=== PATIENT | female | born 1985 | race Caucasian/White ===

== ENCOUNTER 2020-04-13 18:04 | Inpatient (IN) | payer MEDICAID ==
[~2020-04-13] VITALS: Ht 157.5 cm; Wt 55.8 kg
--- NOTE | 2020-04-13 20:10 | NUR ---
patient in from [facility] per ambulance as direct admit with cc of flank pain for 3 to 4 days with dx of right pyelonephritis, with complaints of flank pain and will call physician for admitting orders, Dr Alhaji engel awaiting response
[2020-04-13 20:35] VITALS: BP 108/46
[2020-04-13] MEDS ORDERED: ZOLPIDEM 5 MG TABLET PO PRN (21:30)
[2020-04-13] MEDS ORDERED: HYDROMORPHONE 1 MG/1 ML DISP.SYRIN IV PRN (21:30)
--- NOTE | 2020-04-13 21:37 | NUR ---
Dr Mane with orders and carried out
[2020-04-13] MEDS: ACETAMINOPHEN 325 MG TABLET PO PRN (21:57)
[2020-04-13] MEDS: IV NS 1000 ML 1,000 ML IV PRN (22:01)
--- NOTE | 2020-04-13 22:03 | NUR ---
has allergies to codeine and has reactions to dilaudid . Dr Mane called and informed
[2020-04-13] MEDS ORDERED: CEFTRIAXONE 1 G VIAL ONE (22:22)
[2020-04-13] MEDS: CEFTRIAXONE 1 G in IV DEXTROSE 5% 50 ML IV SCH (22:30)
[2020-04-13] MEDS: MORPHINE SULFATE 4 MG/1 ML DISP.SYRIN IV PRN (22:31)
[2020-04-13] MEDS: ONDANSETRON 4 MG/2 ML VIAL IV PRN (22:31)
--- NOTE | 2020-04-13 22:55 | NUR ---
with call light within reach. Rocephin dose infusing . will continue to monitor. morphine dose given as ordered,
--- NOTE | 2020-04-14 00:17 | NUR ---
Dr Feldman as substation operator chief informed that the patient is crying in pain . with orders and carried out
--- NOTE | 2020-04-14 00:20 | NUR ---
DR FRANCISCO ORDERED MORPHINE 2MG IV FOR ONE TIME FOR SEVERE PAIN.
[2020-04-14] MEDS ORDERED: MORPHINE SULFATE 2 MG/1 ML DISP.SYRIN IV ONE (00:30)
--- NOTE | 2020-04-14 00:38 | NUR ---
Dr Feldman with orders of morphine dose x 1 and given,
--- NOTE | 2020-04-14 00:46 | NUR ---
asleep.latest temp 100.7. continuos cold compress applied, urine specimen cup ready forthe urine collection as was not collected prior.
[2020-04-14] MEDS: ACETAMINOPHEN 325 MG TABLET PO PRN ×2 (03:35→12:30)
--- NOTE | 2020-04-14 03:55 | NUR ---
awake,ambulated to the bathroom .,voided freely.assisted back to bed, temp 101.1.tylenol dose given early.temp is high, cold compress applied
[2020-04-14 04:05] VITALS: BP 112/59
[2020-04-14 04:05] LABS: *BILIRUBIN,URIN NEGATIVE (NEGATIVE); *BLOOD, URINE 2+ (NEGATIVE); *CLARITY,URINE CLEAR (CLEAR); *COLOR,URINE YELLOW (YELLOW); *KETONES,URINE 1+ (NEGATIVE); *UROBILINOGEN,URINE 0.2 E.U./dl (NORMAL); LEUKOCYTE ESTERASE ,URINE 1+ (NEGATIVE); NITRITE, URINE NEGATIVE (NEGATIVE); UGLUCOSE NEGATIVE (NEGATIVE)
--- NOTE | 2020-04-14 04:14 | NUR ---
Dr Feldman paged as the patient is still febrile. and noted the the lab result elevated serum HCG , message left with the exchange, awaiting response
--- NOTE | 2020-04-14 04:45 | NUR ---
awaiting for Dr Feldman to call sai
--- NOTE | 2020-04-14 05:27 | NUR ---
with request to increase thepain medicationasclaims it is not working, awaiting for Dr Feldman to call back.
--- NOTE | 2020-04-14 05:33 | NUR ---
Dr Feldman called back and informed about the fever that is elevated persistently. with no further orders.
[2020-04-14 06:08] VITALS: BP 102/53
--- NOTE | 2020-04-14 06:09 | NUR ---
with complaints of pain to the right flank area radiating to the lower [place], vital signs checked. needa to infirm the physician.
--- NOTE | 2020-04-14 06:12 | NUR ---
patient is complaining of pain right flank radiating to the midback, Dr Francia castro if can ne given morphine for bp 102/54, and patient serum HCg is elevated.
--- NOTE | 2020-04-14 06:18 | NUR ---
with complaints of pain right flank radiating to the mid back. patient elevated serum hcg, with ordwers to repeat the serum hcg level and okay to give morphine dose,
--- NOTE | 2020-04-14 06:26 | NUR ---
PATIENT SERUM HCG 4.[address] NOLAN BAL NOTIFY WITH ORDER TO REPEAT THE TEST.
[2020-04-14] MEDS: PANTOPRAZOLE SODIUM 40 MG TABLET.DR PO SCH (06:31)
[2020-04-14] MEDS: MORPHINE SULFATE 4 MG/1 ML DISP.SYRIN IV PRN ×3 (06:31→18:31)
[2020-04-14 07:27] LABS: BILIRUBIN,TOTAL 0.5 mg/dL (0.2-1.0); CREATININE 0.9 mg/dL (0.6-1.3); MAGNESIUM 2.1 mg/dL (1.8-2.4); PHOSPHOROUS 1.7 mg/dL (2.5-4.9); POTASSIUM 3.5 mmol/L (3.5-5.1); TOTAL PROTEIN, SERUM 5.8 g/dL (6.4-8.2)
[2020-04-14] MEDS: IV NS 1000 ML 1,000 ML IV PRN (09:03)
[2020-04-14 09:05] LABS: BASOPHILS % (AUTO) 0.3 % (0.0-2.0); EOSINOPHILS % (AUTO) 0.1 % (0.0-7.0); HEMATOCRIT 24.5 % (31.2-41.9); LYMPHOCYTES # (AUTO) 1.9 K/uL (20.0-40.0); LYMPHOCYTES % (AUTO) 16.9 % (20.5-51.5); MEAN CORPUSCULAR HEMOGLOBIN 20.1 uug (24.7-32.8); MEAN CORPUSCULAR HGB CONC 30 g/dL (32.3-35.6); MEAN CORPUSCULAR VOLUME 66.6 fL (75.5-95.3); MONOCYTES # (AUTO) 0.7 K/uL (2.0-10.0); MONOCYTES % (AUTO) 6.7 % (0.0-11.0); NEUTROPHILS # (AUTO) 8.5 K/uL (1.8-8.9); PLATELET COUNT (AUTO) 157 K/uL (179-408); RED BLOOD CELL COUNT(AUTO) 3.69 MIL/uL (3.63-4.92); WHITE BLOOD COUNT (AUTO) 11.1 K/uL (3.8-11.8)
[2020-04-14 09:20] LABS: HEMOGLOBIN 7.4 g/dL (10.9-14.3)
[2020-04-14] MEDS: ONDANSETRON 4 MG/2 ML VIAL IV PRN ×2 (11:23→18:30)
[2020-04-14 12:01] VITALS: BP 107/40
[2020-04-14 13:23] LABS: BACTERIA,URINE FEW /HPF (NONE SEEN); SQUAMOUS EPITHELIAL CELL,UR FEW /HPF (NONE SEEN)
[2020-04-14] MEDS ORDERED: KETOROLAC TROMETHAMINE 15 MG INJ IVP ONE ×2 (14:15→19:45)
[2020-04-14 15:35] VITALS: BP 100/59
[2020-04-14 17:19] LABS: BAND % (MANUAL) 5 % (0-10); LYMPHOCYTES % (MANUAL) 2 % (20-40); MONOCYTES % (MANUAL) 4 % (2-10); NEUTROPHILS % (MANUAL) 89 % (42-75)
[2020-04-14 18:54] LABS: BASOPHILS % (AUTO) 0.3 % (0.0-2.0); EOSINOPHILS % (AUTO) 0.2 % (0.0-7.0); HEMATOCRIT 26.9 % (31.2-41.9); LYMPHOCYTES # (AUTO) 2.1 K/uL (20.0-40.0); LYMPHOCYTES % (AUTO) 23.9 % (20.5-51.5); MEAN CORPUSCULAR HEMOGLOBIN 19.6 uug (24.7-32.8); MEAN CORPUSCULAR HGB CONC 30 g/dL (32.3-35.6); MEAN CORPUSCULAR VOLUME 65.7 fL (75.5-95.3); MONOCYTES # (AUTO) 0.7 K/uL (2.0-10.0); MONOCYTES % (AUTO) 8.4 % (0.0-11.0); NEUTROPHILS # (AUTO) 5.8 K/uL (1.8-8.9); NEUTROPHILS % (AUTO) 67.2 % (38.5-71.5); PLATELET COUNT (AUTO) 151 K/uL (179-408); RED BLOOD CELL COUNT(AUTO) 4.09 MIL/uL (3.63-4.92); WHITE BLOOD COUNT (AUTO) 8.7 K/uL (3.8-11.8)
[2020-04-14] MEDS ORDERED: NEUTRA PHOS PACKET PO ONE (19:00)
[2020-04-14 20:20] VITALS: BP 109/55
[2020-04-14] MEDS: CEFTRIAXONE 1 G in IV DEXTROSE 5% 50 ML IV SCH (20:39)
[2020-04-15] MEDS: MORPHINE SULFATE 4 MG/1 ML DISP.SYRIN IV PRN ×5 (00:49→21:30)
[2020-04-15] MEDS: IV NS 1000 ML 1,000 ML IV PRN ×2 (00:54→10:39)
--- NOTE | 2020-04-15 02:28 | NUR ---
awake alert and oriented x4 Admitted for pyelonephritis. VSS. Needs attended. IVF's infusing well. IV ABT given as scheduled. No acute distress noted. On pain management. Patient on Morphine 4mg q4 hr as needed for pain. Will monitor patient for relief. Voiding well without difficulty.
[2020-04-15 04:00] VITALS: BP 114/63
[2020-04-15] MEDS: PANTOPRAZOLE SODIUM 40 MG TABLET.DR PO SCH (06:21)
[2020-04-15 08:04] LABS: BILIRUBIN,TOTAL 0.3 mg/dL (0.2-1.0); CREATININE 0.9 mg/dL (0.6-1.3); POTASSIUM 3.2 mmol/L (3.5-5.1); TOTAL PROTEIN, SERUM 5.4 g/dL (6.4-8.2)
[2020-04-15] MEDS ORDERED: POTASSIUM CHLORIDE 20 MEQ TAB.PRT.SR PO ONE (09:15)
[2020-04-15 10:12] LABS: BASOPHILS % (AUTO) 0.3 % (0.0-2.0); HEMATOCRIT 22.7 % (31.2-41.9); LYMPHOCYTES # (AUTO) 2.8 K/uL (20.0-40.0); MEAN CORPUSCULAR HEMOGLOBIN 20.1 uug (24.7-32.8); MEAN CORPUSCULAR HGB CONC 31 g/dL (32.3-35.6); MEAN CORPUSCULAR VOLUME 65.1 fL (75.5-95.3); MONOCYTES # (AUTO) 0.7 K/uL (2.0-10.0); NEUTROPHILS # (AUTO) 5.4 K/uL (1.8-8.9); NEUTROPHILS % (AUTO) 60.7 % (38.5-71.5); PLATELET COUNT (AUTO) 143 K/uL (179-408); RED BLOOD CELL COUNT(AUTO) 3.48 MIL/uL (3.63-4.92); WHITE BLOOD COUNT (AUTO) 8.9 K/uL (3.8-11.8)
[2020-04-15 12:00] VITALS: BP 120/70
[2020-04-15 13:24] LABS: *BILIRUBIN,URIN NEGATIVE (NEGATIVE); *BLOOD, URINE 3+ (NEGATIVE); *CLARITY,URINE CLEAR (CLEAR); *COLOR,URINE YELLOW (YELLOW); *KETONES,URINE NEGATIVE (NEGATIVE); *UROBILINOGEN,URINE 0.2 E.U./dl (NORMAL); LEUKOCYTE ESTERASE ,URINE NEGATIVE (NEGATIVE); NITRITE, URINE NEGATIVE (NEGATIVE); UGLUCOSE NEGATIVE (NEGATIVE)
[2020-04-15 13:58] LABS: *CREATININE,URINE 151.3 mg/dL (30-125); *URINE TOTAL PROTEIN RANDOM 139.7 mg/dL (<150/24HR)
[2020-04-15] MEDS: ACETAMINOPHEN 325 MG TABLET PO PRN (15:41)
[2020-04-15 16:09] VITALS: BP 101/53
[2020-04-15] MEDS ORDERED: PIPERACILLIN SODIUM/TAZOBACTAM 3.375 G in IV DEXTROSE 5% 50 ML IV ONE (17:00)
[2020-04-15 17:21] LABS: BACTERIA,URINE FEW /HPF (NONE SEEN); RBC,URINE 20-50 /HPF (0-3); SQUAMOUS EPITHELIAL CELL,UR FEW /HPF (NONE SEEN); WBC,URINE 0-3 /HPF (0-3)
[2020-04-15 17:32] LABS: BAND % (MANUAL) 3 % (0-10); EOSINOPHILS % (MANUAL) 1 % (0-8); LYMPHOCYTES % (MANUAL) 13 % (20-40); MONOCYTES % (MANUAL) 12 % (2-10); NEUTROPHILS % (MANUAL) 71 % (42-75)
[2020-04-15 20:19] VITALS: BP 90/54
[2020-04-15] MEDS: PIPERACILLIN SODIUM/TAZOBACTAM 3.37 G in IV DEXTROSE 5% 100 ML IV SCH (22:36)
[2020-04-15] MEDS ORDERED: PIPERACILLIN SODIUM/TAZOBACTAM 3.375 G in IV DEXTROSE 5% 50 ML IV SCH (23:00)
[2020-04-16] VITALS (7 sets, daily range): BP systolic 98–131; BP diastolic 55–78
[2020-04-16] MEDS: MORPHINE SULFATE 4 MG/1 ML DISP.SYRIN IV PRN ×4 (00:48→15:21)
[2020-04-16] MEDS: PANTOPRAZOLE SODIUM 40 MG TABLET.DR PO SCH (06:47)
[2020-04-16] MEDS: PIPERACILLIN SODIUM/TAZOBACTAM 3.37 G in IV DEXTROSE 5% 100 ML IV SCH ×3 (06:47→22:06)
[2020-04-16] MEDS: IV NS 1000 ML 1,000 ML IV PRN (06:55)
--- NOTE | 2020-04-16 07:10 | NUR ---
Handoff with day team nurse ASHLEY Grey. Tigre Moreno RN
[2020-04-16 07:48] LABS: BILIRUBIN,TOTAL 0.6 mg/dL (0.2-1.0); CREATININE 0.9 mg/dL (0.6-1.3); MAGNESIUM 1.7 mg/dL (1.8-2.4); PHOSPHOROUS 1.3 mg/dL (2.5-4.9); POTASSIUM 3.4 mmol/L (3.5-5.1); TOTAL PROTEIN, SERUM 5.8 g/dL (6.4-8.2); URIC ACID 1.6 mg/dL (2.6-6.0)
[2020-04-16 08:26] LABS: BASOPHILS % (AUTO) 0.4 % (0.0-2.0); EOSINOPHILS % (AUTO) 0.1 % (0.0-7.0); HEMATOCRIT 26.1 % (31.2-41.9); HEMOGLOBIN 8.3 g/dL (10.9-14.3); LYMPHOCYTES # (AUTO) 2.2 K/uL (20.0-40.0); MEAN CORPUSCULAR HEMOGLOBIN 21.5 uug (24.7-32.8); MEAN CORPUSCULAR HGB CONC 32 g/dL (32.3-35.6); MEAN CORPUSCULAR VOLUME 67.8 fL (75.5-95.3); MONOCYTES % (AUTO) 9.9 % (0.0-11.0); NEUTROPHILS # (AUTO) 6.4 K/uL (1.8-8.9); NEUTROPHILS % (AUTO) 66.6 % (38.5-71.5); PLATELET COUNT (AUTO) 148 K/uL (179-408); RED BLOOD CELL COUNT(AUTO) 3.86 MIL/uL (3.63-4.92); WHITE BLOOD COUNT (AUTO) 9.6 K/uL (3.8-11.8)
[2020-04-16 08:37] LABS: THYROID STIMULATING HORMONE 1.867 mIU/mL (0.358-3.740)
[2020-04-16] MEDS ORDERED: POTASSIUM CHLORIDE 20 MEQ TAB.PRT.SR PO SCH (10:15)
[2020-04-16] MEDS: MAGNESIUM SULFATE/D5W 100 ML IV SCH ×2 (10:47→11:59)
[2020-04-16] MEDS: ONDANSETRON 4 MG/2 ML VIAL IV PRN (15:21)
[2020-04-16] MEDS: ACETAMINOPHEN 325 MG TABLET PO PRN (17:10)
[2020-04-16] MEDS ORDERED: MORPHINE SULFATE 4 MG/1 ML DISP.SYRIN IV PRN (17:15)
[2020-04-16] MEDS ORDERED: KETOROLAC TROMETHAMINE 15 MG INJ IVP ONE (17:15)
[2020-04-16] MEDS ORDERED: NEUTRA PHOS PACKET PO ONE (17:30)
[2020-04-16 18:44] LABS: BAND % (MANUAL) 1 % (0-10); EOSINOPHILS % (MANUAL) 1 % (0-8); LYMPHOCYTES % (MANUAL) 17 % (20-40); MONOCYTES % (MANUAL) 6 % (2-10); NEUTROPHILS % (MANUAL) 75 % (42-75)
--- NOTE | 2020-04-16 19:00 | NUR ---
awake alert and oriented x4 . VSS. Needs attended. IVF's infusing well. No acute distress noted. On pain management.call light with in reach
[2020-04-17] MEDS: HYDROCODONE/APAP 10-325 MG TABLET PO PRN ×4 (01:04→23:18)
[2020-04-17 04:45] VITALS: BP 106/52
[2020-04-17] MEDS: PANTOPRAZOLE SODIUM 40 MG TABLET.DR PO SCH (06:15)
[2020-04-17] MEDS: PIPERACILLIN SODIUM/TAZOBACTAM 3.37 G in IV DEXTROSE 5% 100 ML IV SCH ×3 (06:17→23:18)
[2020-04-17] MEDS ORDERED: MORPHINE SULFATE 2 MG/1 ML DISP.SYRIN IV PRN (06:45)
[2020-04-17 06:49] LABS: BASOPHILS % (AUTO) 0.2 % (0.0-2.0); EOSINOPHILS % (AUTO) 0.3 % (0.0-7.0); HEMATOCRIT 28.6 % (31.2-41.9); LYMPHOCYTES # (AUTO) 1.6 K/uL (20.0-40.0); LYMPHOCYTES % (AUTO) 24.4 % (20.5-51.5); MEAN CORPUSCULAR HEMOGLOBIN 21.1 uug (24.7-32.8); MEAN CORPUSCULAR HGB CONC 31 g/dL (32.3-35.6); MEAN CORPUSCULAR VOLUME 67.2 fL (75.5-95.3); MONOCYTES # (AUTO) 0.6 K/uL (2.0-10.0); MONOCYTES % (AUTO) 9.3 % (0.0-11.0); NEUTROPHILS # (AUTO) 4.4 K/uL (1.8-8.9); NEUTROPHILS % (AUTO) 65.8 % (38.5-71.5); PLATELET COUNT (AUTO) 173 K/uL (179-408); RED BLOOD CELL COUNT(AUTO) 4.26 MIL/uL (3.63-4.92); WHITE BLOOD COUNT (AUTO) 6.7 K/uL (3.8-11.8)
[2020-04-17 07:25] LABS: CREATININE 0.9 mg/dL (0.6-1.3); POTASSIUM 3.8 mmol/L (3.5-5.1)
[2020-04-17] MEDS: ONDANSETRON 4 MG/2 ML VIAL IV PRN ×2 (08:52→23:18)
[2020-04-17] MEDS: DOCUSATE SODIUM 100 MG CAPSULE PO SCH (08:53)
--- NOTE | 2020-04-17 08:53 | NUR ---
PATIENT REQUESTED FOR ZOFRAN AND NORCO C/O HER STOMACH FEELS FUNNY MEDICATED ORDERED AND SHE ALSO WANTED VANE TERESA NOTIFIED DIETARY MADE COMFORTABLE CALL LIGHTS AND ALL PERSONAL BELONGINGS ARE WITHIN EASY REACH WILL CONTINUE TO OBSERVE.
[2020-04-17 11:36] VITALS: BP 103/55
--- NOTE | 2020-04-17 12:37 | NUR ---
IN ROOM TALKING TO HER FAMILY MEMBER ON THE PHONE SEEMS COMFORTABLE AT THIS TIME IVF IN PROGRESS ORDERED WILL CONTINUE TO OBSERVE.
[2020-04-17] MEDS: IV NS 1000 ML 1,000 ML IV PRN (15:21)
--- NOTE | 2020-04-17 15:40 | NUR ---
PATIENT SEEN AND EXAMINED BY AMEYA EQUAL OPPORTUNITY SPECIALIST WITH NEW ORDERS AND NOTED.CONTINUE WITH PAIN MANAGEMENT ORDERED AND HELPFUL.IVPB ATB IN PROGRESS ORDERED WITH NO ADVERSE OR ALLERGIC REACTIONS AT THIS TIME.
[2020-04-17 15:45] VITALS: BP 97/50
[2020-04-17] MEDS ORDERED: MAGNESIUM HYDROXIDE 30 ML LIQUID UDC PO PRN (15:45)
[2020-04-17] MEDS: MIRALAX 17 GM POWD.PACK PO SCH (16:47)
--- NOTE | 2020-04-17 18:37 | NUR ---
IV SITE LEFT HAND INFILTERATED REINSERTED TO HER RIGHT FOREARM AFTER 3 ATTEMPTS AND CONTINUED ON HER IVF AND IV ATB ORDERED.
--- NOTE | 2020-04-17 19:30 | NUR ---
Pt received sleeping in bed. On RA and does not appear to be in any acute distress at this time. Will continue to monitor.
[2020-04-17 20:00] VITALS: BP 92/47
[2020-04-17 21:01] LABS: EOSINOPHILS % (MANUAL) 1 % (0-8); LYMPHOCYTES % (MANUAL) 16 % (20-40); MONOCYTES % (MANUAL) 5 % (2-10); NEUTROPHILS % (MANUAL) 78 % (42-75)
[2020-04-18 04:00] VITALS: BP 105/62
--- NOTE | 2020-04-18 06:48 | NUR ---
Pt slept throughout the night. Denies any SOB or chest pain. No acute distress at this time. PRN pain meds given throughout the night. Will endorse to day shift.
[2020-04-18] MEDS: PANTOPRAZOLE SODIUM 40 MG TABLET.DR PO SCH (07:08)
[2020-04-18] MEDS: PIPERACILLIN SODIUM/TAZOBACTAM 3.37 G in IV DEXTROSE 5% 100 ML IV SCH (07:08)
--- NOTE | 2020-04-18 07:30 | NUR ---
Received patient resting in bed awake, alert and oriented. No sign of distress noted at this time. Safety precautions in place with call light and belongings within reach. Will continue to monitor.
[2020-04-18] MEDS: DOCUSATE SODIUM 100 MG CAPSULE PO SCH (09:38)
[2020-04-18] MEDS: MIRALAX 17 GM POWD.PACK PO SCH (09:38)
[2020-04-18] MEDS: ONDANSETRON 4 MG/2 ML VIAL IV PRN (10:32)
[2020-04-18] MEDS: HYDROCODONE/APAP 10-325 MG TABLET PO PRN (10:32)
--- NOTE | 2020-04-18 10:35 | NUR ---
Patient complained of pain of 6/10 and nausea. Zofran was administered for nausea and [place] for pain. Will continue to monitor.
[2020-04-18 12:00] VITALS: BP 97/54
[2020-04-18] MEDS ORDERED: LEVO500T90 PO (12:07)
[2020-04-18] MEDS ORDERED: CEFTRIAXONE 1 G in IV DEXTROSE 5% 50 ML IV SCH (14:00)
--- NOTE | 2020-04-18 14:36 | NUR ---
Patient refused antibiotic. Says it will take too long to infused and she wants to leave. Will continue to monitor.
[2020-04-18] MEDS ORDERED: ONDA4TAB5 PO (14:59)
--- NOTE | 2020-04-18 15:20 | NUR ---
Patient brought down in wheelchair will all belonging and paperwork. Patient is stable with no sign of distress noted. Belongings list and discharge paperwork signed and placed in patient's chart. ID band removed and IV discontinued. Discharge teaching done and patient acknowledged understanding. All medications given as ordered and prescriptions orders sent to pharmacy on file.
== END 2020-04-18 15:20 | disposition home or self-care (01) | DRG 720 ==
LOC: TELE3 20:39 → MEDSURG3 22:00
PROVIDERS: ADMIT Nurse Practitioner Acute Care; ATTEND Nurse Practitioner Acute Care
PROC: 30233N1 Transfusion of Nonautologous Red Blood Cells into Peripheral Vein, Percutaneous Approach (ICD-10-PCS; principal; 2020-04-16)
DX: A41.9 Sepsis, unspecified organism (principal); N10 Acute pyelonephritis; E43 Unspecified severe protein-calorie malnutrition; D50.9 Iron deficiency anemia, unspecified; D69.6 Thrombocytopenia, unspecified; E87.6 Hypokalemia; E83.42 Hypomagnesemia; E88.09 Other disorders of plasma-protein metabolism, not elsewhere classified; Z68.22 Body mass index [BMI] 22.0-22.9, adult; E86.1 Hypovolemia; E22.2 Syndrome of inappropriate secretion of antidiuretic hormone; B96.1 Klebsiella pneumoniae [K. pneumoniae] as the cause of diseases classified elsewhere; D59.4 Other nonautoimmune hemolytic anemias
CPT/HCPCS: 36415; 70030-TC; 76770; 83550; 83605; 83735; 84100; 84156; 84300; 84443; 84550; 85025; 85651; 86850; 86900; 86901; 86920; 87040; 87086; A4663; G0378; J0696; J1885; J2270; J2405; J2543; J3475; J7030; J7060; P9016-BL; P9021